=== PATIENT | female | born 1935 | race Two or more races ===

== ENCOUNTER 2018-04-12 11:56 | Day surgery (SDC) | payer MEDICARE, MEDICAID ==
[~2018-04-12] VITALS: Ht 167.6 cm; Wt 73.5 kg
[2018-04-12] VITALS (7 sets, daily range): BP systolic 121–131; BP diastolic 60–76
--- NOTE | 2018-04-12 06:57 | Pre-Procedure Note/Attestation ---
Pre-Procedure Note/Attestation Complete Prior to Procedure Planned Procedure: right - Removal of cataract and placement of intraocular lens, right eye Procedure Narrative: Removal of cataract and placement of intraocular lens, right eye Indications for Procedure Pre-Operative Diagnosis: Cataract, combined, right eye Attestation I attest that I discussed the nature of the procedure; its benefits; risks and complications; and alternatives (and the risks and benefits of such alternatives ), prior to the procedure, with the patient (or the patient's legal patient financial representative). I attest that, if there was a reasonable possibility of needing a blood transfusion, the patient (or the patient's legal patient financial representative) was given the [place] [employer] [facility] [employer] [facility] standardized written summary, pursuant to the Priy[place] Blood Safety Act ([place] Health and Safety Code # 1645, as amended). I attest that I re-evaluated the patient just prior to the surgery and that there has been no change in the patient's H&P, except as documented below: Nabil Shetty MD Apr 12, 2018 06:57
[~2018-04-12 11:56] MED LIST: PREVACID15 MG ORAL; Pred Forte 1% Opth Susp 1ml RIGHT EYE ONE; Vigamox Opth Soln 3ml RIGHT EYE SCH
[2018-04-12] MEDS ORDERED: Akten 3.5% 1ml Btl ONE (12:13)
[2018-04-12] MEDS ORDERED: Cyclopentolate 1% Opth Sol 2ml ONE (12:13)
[2018-04-12] MEDS ORDERED: Vigamox Opth Soln 3ml ONE (12:14)
[2018-04-12] MEDS ORDERED: Pred Forte 1% Opth Susp 1ml ONE ×2 (12:14→13:23)
[2018-04-12] MEDS ORDERED: Flurbiprofen 0.03% Opth Sol 2.5ml ONE (12:14)
[2018-04-12] MEDS ORDERED: Phenylephrine 10% Opth Soln 5ml ONE (12:18)
[2018-04-12] MEDS: Cyclopentolate 1% Opth Sol 2ml RIGHT EYE SCH ×3 (12:20→12:42)
[2018-04-12] MEDS: Phenylephrine 10% Opth Soln 5ml RIGHT EYE SCH ×3 (12:20→12:42)
[2018-04-12] MEDS: Flurbiprofen 0.03% Opth Sol 2.5ml RIGHT EYE SCH ×3 (12:21→12:43)
[2018-04-12] MEDS: Akten 3.5% 1ml Btl RIGHT EYE SCH ×3 (12:21→12:42)
[2018-04-12] MEDS: Vigamox Opth Soln 3ml RIGHT EYE SCH ×3 (12:27→12:42)
[2018-04-12] MEDS ORDERED: ATORVASTATIN CA10 MG ORAL (12:51)
[2018-04-12] MEDS ORDERED: ASPIR 8181 MG ORAL (12:51)
[2018-04-12 13:12] LABS: BASOPHILS % (AUTO) 0.8 % (0.0-2.0); EOSINOPHILS % (AUTO) 2.5 % (0.0-3.0); HEMATOCRIT 43.4 % (37.0-47.0); HEMOGLOBIN 14.2 G/DL (12.0-16.0); LYMPHOCYTES % (AUTO) 20.1 % (20.0-45.0); MEAN CORPUSCULAR VOLUME 83 FL (80-99); MONOCYTES % (AUTO) 10.7 % (1.0-10.0); NEUTROPHILS % (AUTO) 65.9 % (45.0-75.0); PLATELET COUNT 199 K/UL (150-450); RED BLOOD COUNT 5.22 M/UL (4.20-5.40); RED CELL DISTRIBUTION WIDTH 11.5 % (11.6-14.8)
[2018-04-12 13:16] LABS: ANION GAP 10 mmol/L (5-15); BLOOD UREA NITROGEN 16 mg/dL (7-18); CALCIUM 8.9 MG/DL (8.5-10.1); CARBON DIOXIDE 25 MMOL/L (21-32); CHLORIDE 107 MMOL/L (98-107); CREATININE 0.8 MG/DL (0.55-1.30); POTASSIUM 3.6 MMOL/L (3.5-5.1); SODIUM 142 MMOL/L (136-145)
[2018-04-12] MEDS ORDERED: EPINEPHrine 1mg/1ml Amp ONE (13:22)
[2018-04-12] MEDS ORDERED: Lidocaine 4% Amp ONE (13:23)
[2018-04-12] MEDS ORDERED: Timolol 0.5% Op Soln 2.5ml ONE (13:23)
[2018-04-12] MEDS ORDERED: Carbachol 0.01% Op Soln 1.5ml vial ONE (13:23)
[2018-04-12] MEDS ORDERED: Maxitrol Opth Oint 3.5gm ONE (13:23)
[2018-04-12] MEDS ORDERED: BSS 500ml btl ONE (13:23)
[2018-04-12] MEDS ORDERED: Dexamethasone 4mg/ml vial ONE (13:23)
[2018-04-12] MEDS ORDERED: Fluorescein Strips ONE (13:23)
[2018-04-12] MEDS ORDERED: Lidocaine 1% MPF 10mg/ml 5ml ONE (13:23)
[2018-04-12] MEDS ORDERED: Tetracaine 0.5% Opth 4ml Soln ONE (13:24)
[2018-04-12] MEDS ORDERED: Sodium Hyaluronate 10 mg/ml 0.85ml ONE (13:24)
[2018-04-12] MEDS ORDERED: BSS 15ml BTL ONE (13:24)
[2018-04-12] MEDS ORDERED: Povidone-Iodine 5% opth solution ONE (13:26)
[2018-04-12] MEDS ORDERED: Sterile Water For Irrig 2000ml IRRIG ONE (13:30)
[2018-04-12] MEDS ORDERED: LR 1000ml ONE (13:30)
[2018-04-12] MEDS ORDERED: NS Irrig 1000ml ONE (13:30)
[2018-04-12] MEDS ORDERED: Midazolam 2mg/2ml Inj ONE (13:31)
--- NOTE | 2018-04-12 13:49 | Anethesia Preoperative Eval ---
Anesthesia Pre-op PMH/ROS General Date of Evaluation: Apr 12, 2018 Time of Evaluation: 13:20 Anesthesiologist: Yulia Almodovar CRNA ASA Score: ASA 2 Mallampati Score Class I : Soft palate, uvula, fauces, pillars visible Class II: Soft palate, uvula, fauces visible Class III: Soft palate, base of uvula visible Class IV: Only hard plate visible Mallampati Classification: Class II Surgeon: Sena Diagnosis: RIGHT eye cataract Surgical Procedure: RIGHT eye cataract extraction IOL Anesthesia History: none Family History: no anesthesia problems Allergies: Coded Allergies: CEPHALEXIN (Unverified Allergy, Unknown, Rash, 12/26/14) Coffee (Unverified Allergy, Unknown, 12/26/14) smelling of coffee causes running nose,tearing Medications: see eMAR Past Medical History Cardiovascular: Reports: other - Hyperlipidemia; Denies: HTN, CAD, ME, valve dz, arrhythmia Pulmonary: Reports: other - 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 Exam Physician Exam Last Vital Signs Date Time Temp Pulse Resp B/P (MAP) Pulse Ox O2 Delivery O2 Flow Rate FiO2 04/12/18 12:33 Room Air 04/12/18 12:31 97.8 72 18 131/74 (93) 97 97.8 Constitutional: NAD Neurologic: CN 2-12 intact Cardiovascular: RRR Respiratory: CTA Gastrointestinal: S/NT/ND Airway Exam Mallampati Score: Class II MO: full TMD: > 3 FB ROM: full Teeth: missing, intact Dentures: upper - Partial bridge, lower Anesthesia Pre-op A/P Labs Hematology Test 04/12/18 12:45 White Blood Count 6.0 K/UL (4.8-10.8) Red Blood Count 5.22 M/UL (4.20-5.40) Hemoglobin 14.2 G/DL (12.0-16.0) Hematocrit 43.4 % (37.0-47.0) Mean Corpuscular Volume 83 FL (80-99) Mean Corpuscular Hemoglobin 27.2 PG (27.0-31.0) Mean Corpuscular Hemoglobin Concent 32.7 G/DL (32.0-36.0) Red Cell Distribution Width 11.5 % (11.6-14.8) L Platelet Count 199 K/UL (150-450) Mean Platelet Volume 7.0 FL (6.5-10.1) Neutrophils (%) (Auto) 65.9 % (45.0-75.0) Lymphocytes (%) (Auto) 20.1 % (20.0-45.0) Monocytes (%) (Auto) 10.7 % (1.0-10.0) H Eosinophils (%) (Auto) 2.5 % (0.0-3.0) Basophils (%) (Auto) 0.8 % (0.0-2.0) Chemistry Test 04/12/18 12:45 Sodium Level 142 MMOL/L (136-145) Potassium Level 3.6 MMOL/L (3.5-5.1) Chloride Level 107 MMOL/L (98-107) Carbon Dioxide Level 25 MMOL/L (21-32) Anion Gap 10 mmol/L (5-15) Blood Urea Nitrogen 16 mg/dL (7-18) Creatinine 0.8 MG/DL (0.55-1.30) Estimat Glomerular Filtration Rate mL/min (>60) Glucose Level 92 MG/DL (74-106) Calcium Level 8.9 MG/DL (8.5-10.1) Studies Pre-op Studies: EKG - NSR Risk Assessment & Plan Assessment: ASA 2 ok to proceed Plan: MAC Status Change Before Surgery: No Pre-Antibiotics Given Within 1 Hr of Incision: Yulia Linton CRNA Apr 12, 2018 13:49
--- NOTE | 2018-04-12 14:27 | Discharge Instructions ---
Discharge Instructions Discharge Instructions Follow Up Orders Continue preop eye drops Wear shield at all times except to place eye drops Followup tomorrow at 2:[address] Shetty's office. Sooner PRN For Congestive Heart Failure Reminder Report to your physician any weight gain of 5 pounds or more in one week. Nabil Shetty MD Apr 12, 2018 14:27
--- NOTE | 2018-04-12 14:31 | Immediate Post-Op Evaluation ---
Immediate Post-Op Evalulation Immediate Post-Op Evalulation Procedure: RIGHT eye cataract extraction IOL Date of Evaluation: Apr 12, 2018 Time of Evaluation: 14:25 IV Fluids: LR 300 ml Estimated Blood Loss: minimal Blood Pressure Systolic: 121 Blood Pressure Diastolic: 71 Pulse Rate: 67 Respiratory Rate: 20 O2 Sat by Pulse Oximetry: 98 Temperature (Fahrenheit): 97.7 Pain Score (1-10): 0 Nausea: No Vomiting: No Complications none Patient Status: awake, reacts, patent Hydration Status: adequate Given Within 1 Hr of Incision: Yulia Linton CRNA Apr 12, 2018 14:31
--- NOTE | 2018-04-12 14:33 | Brief Operative Note ---
Immediate Post Operative Note Operative Note Pre-op Diagnosis: Cataract, combined, right eye Procedure: Phaco PC IOL, OD Post-op Diagnosis: same as pre-op Anesthesiologist: Aruna Almodovar CRNA Anesthesia: local, MAC Specimen: none Complications: none Fluids: see chart Estimated Blood Loss: minimal Implant(s) used?: Yes - SA60 AT 18.0 Nabil Álvarez MD Apr 12, 2018 14:32
[2018-04-12] MEDS ORDERED: Propofol 200mg/20ml IV ONE (14:42)
--- NOTE | 2018-04-12 18:30 | Pre-op HX & Phy Repo 2 SIG ---
DATE OF ADMISSION: 04/12/2018 HISTORY OF PRESENT ILLNESS: The patient is an 82-year-old female going for elective surgery of the right eye. The patient has a cataract, right eye. Please see Ophthalmology History and Physical by Dr. Nabil Shetty. The patient is seen in the outpatient department. PAST MEDICAL HISTORY/REVIEW OF SYSTEMS: Remarkable for, denies history of hypertension. No history of heart attack. Occasional heartburn, chronic urinary tract infection, finished course of antibiotics today. Last TB 50 years ago. Finished 2 years of anti-TB treatment. There is no history of anemia and degenerative joint disease. Denies history of thyroid problem. No diabetes. No stroke. No renal failure. No thyroid problem. PAST SURGICAL HISTORY: Left eye cataract and left wrist fractured many years ago. FAMILY HISTORY: Mother from liver cancer, father prostate cancer, and brother had a lung cancer. PRESENT MEDICATIONS: Include aspirin, multivitamin, iron, Lipitor, and Keflex finished today. ALLERGIES: The patient is allergic to coffee smell and pollens, develops congestion. HABITS: Denies history of smoke or alcohol habits. No street drugs. PHYSICAL EXAMINATION: GENERAL: Alert, well-developed, well-nourished female, in her 80s. VITAL SIGNS: Blood pressure 131/74, temperature 97.8, pulse 72 and regular, respirations 20, and O2 saturation 97% on room air. BMI 26.1 kg/m2. The patient is alert. SKIN: Dry, pale, and warm. No diaphoresis. No rashes. No open wounds. LYMPH NODES: Not enlarged. HEENT: Head, normocephalic and atraumatic. Ears, clear. Eyes, left eye aphakia and right eye dense cataract. Full description per Dr. Nabil Shetty. Mouth, clear and moist. The patient has removed before surgery. NECK: Supple. No jugular venous distention. Carotids artery +2. Trachea midline. CHEST: No deformity or asymmetry. LUNGS: Clear to auscultation and percussion. No rales or rhonchi. HEART: Sinus rhythm 72 per minute. No murmur. No S3 or S4. ABDOMEN: Soft and benign. Liver and spleen are not enlarged. EXTREMITIES: Degenerative joint disease of the knee. No varices. No calf tenderness. GENITOURINARY TRACT: Chronic urinary tract infection. CVA nontender. NEUROLOGIC: No asymmetry. No nystagmus. No tremors. DIAGNOSTIC DATA: ECG, normal sinus rhythm, 74 per minute, normal ECG. The patient is NPO since 7 p.m. yesterday. Laboratory work pending. IMPRESSION: 1. Cataract, right eye. 2. Chronic urinary tract infection. 3. 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 4. Degenerative joint disease of the knees. 5. Heartburns, possible gastroesophageal reflux disease. PLAN: Cataract extraction of the right eye with intraocular lens implant per Dr. Nabil Shetty. CONCLUSION: The patient is an 82-year-old female with history of TB and chronic urinary tract infection. The patient also has degenerative joint disease. She is allergic to coffee. The patient is NPO and her condition is optimized for surgery. Thank you very much, Dr. Shetty, for the privilege to participate in presurgical care of this interesting patient. Katty Gallegos M.D. DR: CARIE JOB#: [id number] CC:
--- NOTE | 2018-04-13 18:30 | Operative Note - Dictated ---
DATE OF OPERATION: 04/12/2018 SURGEON: Nabil Shetty M.D. K[employer]TER SURGEON: None. ANESTHESIOLOGIST: Yulia Almodovar CRNA. ANESTHESIA: Local/standby/monitored anesthesia care. PREOPERATIVE DIAGNOSIS: Cataract, combined, right eye. POSTOPERATIVE DIAGNOSIS: Cataract, combined, right eye. PROCEDURES: 1. Phacoemulsification of cataract, right eye. 2. Placement of posterior chamber intraocular lens, right eye (model SA60AT, power 18.0, [employer]). COMPLICATIONS: None. SPECIMENS: None. INDICATIONS FOR SURGERY: The patient has had the painless progressive decrease in visual acuity in the right eye secondary to cataract. The patient understands the risks of surgery including infection, bleeding, need for further surgery, loss of vision, no improvement in vision, loss of the eye, loss of life, glaucoma, retinal detachment, and understands these risks and elects to proceed with surgery. FINDINGS: The patient had a +3 nuclear sclerotic cataract as well as a +1 to 2 cortical cataract. OPERATIVE NOTE: After informed consent was obtained, the patient was brought into the operating room and placed in the supine position. Cardiac and respiratory monitors were attached. A time-out was performed and all criteria were met and everyone in the room agreed. The right eye was then draped and prepped in sterile manner for ocular surgery. A lid speculum was placed in the eye. A 1% lidocaine preservative-free was injected at the approximate 8:30 limbus. A conjunctival peritomy from approximately 8:30 and 9:30 was made and dissected posteriorly. Hemostasis was maintained with bipolar cautery. A 2.6 mm limbal incision was made centered at approximately 9 o'clock and dissected anteriorly. Paracentesis was made at approximately 12 o'clock and Shugarcaine was injected into the anterior chamber followed by Healon. The anterior chamber was then entered using a 2.6 mm keratome through the limbal incision. An anterior capsulorrhexis was then performed. Hydrodissection and hydrodelineation of the lens was then performed. The lens was then phacoemulsified using divide and conquer four-quadrant technique. Residual cortical material was then aspirated. Healon was injected into the anterior chamber and capsular bag. The lens was taken from its package, placed into the cartridge, and the tip of the cartridge was placed through the limbal incision and the lens was injected into the capsular bag and centered nicely with a Sinskey hook. It was aligned such that it was in the approximate 9 o'clock to 3 o'clock axis and stayed that way throughout the end of the case. Healon was then aspirated from the anterior chamber and capsular bag. One 10-0 nylon interrupted suture was then placed through the limbal incision and wounds were checked and found to be watertight. The conjunctiva was then closed with forceps cautery. The lid speculum and drapes were removed from the eye and drops of Timoptic, Pred Forte, and moxifloxacin were applied to the eye followed by Maxitrol ointment and then a shield. The patient tolerated the procedure well and left the operating room in awake, alert, and stable condition. Nabil Shetty M.D. DR: SARAH JOB#: [id number] CC:
[2018-04-14 12:26] VITALS: BP 126/76
--- NOTE | 2018-04-14 12:26 | 48 Hour Post Anesthesia Eval ---
Post Anesthesia Evaluation Procedure: RIGHT eye cataract extraction IOL Date of Evaluation: Apr 12, 2018 Time of Evaluation: 15:00 Blood Pressure Systolic: 126 0: 76 Pulse Rate: 74 Respiratory Rate: 18 Temperature (Fahrenheit): 98.2 O2 Sat by Pulse Oximetry: 98 Nausea: No Vomiting: No Pain Intensity: 0 Mental Status/LOC: patient returned to baseline Follow-up Care/Observations: f/u with surgeon Post-Anesthesia Complications: none Follow-up care needed: ready to discharge Yulia Almodovar CRNA Apr 14, 2018 12:26
== END 2018-04-12 15:15 | disposition home or self-care (01) ==
LOC: SUR 11:56
DX: H25.811 Combined forms of age-related cataract, right eye (principal); E78.5 Hyperlipidemia, unspecified; K21.9 Gastro-esophageal reflux disease without esophagitis; D64.9 Anemia, unspecified; M17.0 Bilateral primary osteoarthritis of knee; R12 Heartburn; Z87.440 Personal history of urinary (tract) infections; Z88.1 Allergy status to other antibiotic agents
CPT/HCPCS: 36415; 66984; 80048; 85025; 93005; J0171; J1100; J2250; J2704; V2632; 94003; 94150